=== PATIENT | male | born 1980 | race Caucasian/White ===

== ENCOUNTER 2020-03-04 22:45 | Emergency (ER) | payer MEDICARE, MEDICAID ==
--- NOTE | 2020-03-04 23:34 | ER Document Report ---
ED General - General Chief Complaint: Overdose Stated Complaint: OVERDOSE Time Seen by Provider: 03/04/20 23:00 Primary Care Provider: TAM GUPTA MD [HONORARY] - Follow up as needed Information source: Emergency Med Personnel TRAVEL OUTSIDE OF THE [place] IN LAST 30 DAYS: No - HPI Context: This is a 40-year-old male presents to the emergency department for evaluation of altered mental status after reportedly snorting heroin. The patient is somnolent currently maintain his airway and he has to be roused often to get him awake enough to answer questions. Per EMS report, patient became unresponsive after doing heroin at home. EMS reports that a family member gave the patient an injection of Narcan at home which did help to arouse the patient but he then became unresponsive again. EMS was called and patient was again administered Narcan with a positive response and increased alertness. Patient's vital signs per EMS: Blood pressure 137/88, pulse ox 99%, heart rate 83, respiratory rate 15. Patient denies fever, chills, cough, shortness of breath, history of COVID infection, known exposure to COVID positive persons or persons under in vestigation for COVID. Patient denies any pain or discomfort currently. Patient denies headache, visual changes, chest pain, shortness of breath, nausea vomiting, abdominal pain. HPI and history is limited because the patient becomes very easily somnolent. Patient is currently on a environmental monitoring specialist and a pulse oximeter; patient's O2 sat is 100% on room air at this time. Associated symptoms: Other - Patient denies Exacerbated by: Denies Relieved by: Denies - Related Data Allergies/Adverse Reactions: No Known Allergies Allergy (Verified 09/27/14 18:43) Past Medical History - General Information source: Patient, Emergency Med Personnel - Social History Smoking Status: Current Every Day Smoker Frequency of alcohol use: Occasional Drug Abuse: Heroin Lives with: Family Family History: Reviewed & Not Pertinent Patient has suicidal ideation: No Patient has homicidal ideation: No Psychiatric Medical History: Reports: Other - Substance abuse disorder Past Surgical History: Reports: Hx Orthopedic Surgery - Immunizations Hx Diphtheria, Pertussis, Tetanus Vaccination: No Review of Systems - Review of Systems Notes: Patient is without complaint. Patient is somnolent but arousable and denies any type of pain or discomfort including headache, visual changes, chest pain, shortness of breath, abdominal pain, nausea vomiting, headache, fever or chills Constitutional: No symptoms reported EENT: No symptoms reported Cardiovascular: No symptoms reported Respiratory: No symptoms reported Gastrointestinal: No symptoms reported Genitourinary: No symptoms reported Male Genitourinary: No symptoms reported Musculoskeletal: No symptoms reported Skin: No symptoms reported Hematologic/Lymphatic: No symptoms reported Neurological/Psychological: No symptoms reported -: Yes All other systems reviewed and negative Physical Exam - Vital signs Vitals: Temp 97.7 F 03/04/20 22:45 - Notes Notes: CONSTITUTIONAL EMS vital signs reviewed. Patient is laying in bed sleeping. He is easily awoken and subsequently alert for short periods. Patient appears to be protecting his airway and appears to be in no acute distress] HEAD [Atraumatic, Normocephalic.] EYES [Eyes are normal to inspection, No discharge from eyes, Extraocular muscles intact, Sclera are normal, Conjunctiva are normal.] ENT Patient is managing secretions NECK [Normal ROM, No jugular venous distention, No meningeal signs, no carotid bruit.] RESPIRATORY CHEST [Chest is nontender, Breath sounds normal, No respiratory distress. No stridor.] CARDIOVASCULAR [RRR, No murmurs, Normal S1 S2, No rub, No gallop.] ABDOMEN [Abdomen is nontender, No pulsatile masses, No other masses, Bowel sounds normal, No distension, No peritoneal signs, No hernias.] BACK [There is no CVA Tenderness, There is no tenderness to palpation, Normal inspection.] UPPER EXTREMITY [Inspection normal, No cyanosis, No clubbing, No edema, 2+ radial pulses.] LOWER EXTREMITY [Inspection normal, No cyanosis, No clubbing, No edema, No calf tenderness, 2+ femoral pulses.] NEURO [No focal motor deficits, No focal sensory deficits, Speech normal.] SKIN [Skin is warm, Skin is dry, Skin is normal color.] LYMPHATIC [No adenopathy in neck.] PSYCHIATRIC [Depressed affect. ] Course - Re-evaluation Re-evalutation: 03/05/20 05:35 Results of ED MSE discussed with patient. All questions were answered prior to discharge. Patient refuses to provide urine sample for urinalysis and urine drug screen. Emergency signs and symptoms, reasons to return to the emergency department discussed with patient. - Vital Signs Vital signs: Temp Pulse Resp BP Pulse Ox 97.7 F 12 90/69 L 100 03/04/20 22:52 03/05/20 05:15 03/05/20 05:15 03/05/20 05:15 - Laboratory Result Diagrams: 03/04/20 23:10 03/04/20 23:10 Laboratory results interpreted by me: 03/04/20 03/04/20 23:10 23:10 RBC 4.08 L Hgb 12.3 L Hct 34.9 L RDW 14.1 H BUN 21 H - EKG Interpretation by Me Additional EKG results interpreted by me: 03/05/20 05:39 EKG obtained on 03/05/2020 at 00 11 hours was interpreted by this MD. Findings: Normal sinus rhythm, rate 73, normal axis, NC intervals are within normal limits, P waves proceed QRS complexes, QRS complexes appear narrow, QTC is 437, there are no obvious patterns of ST segment elevation or depression present to suggest acute myocardial ischemia or infarction. When compared to EKG from 11/03/2012 there is no significant change in morphology. Impression: Normal sinus rhythm with nonspecific ST segments. Discharge - Discharge Clinical Impression: Accidental drug overdose Qualifiers: Encounter type: initial encounter Qualified Code(s): T50.901A - Poisoning by unspecified drugs, medicaments and biological substances, accidental (unintentional), initial encounter Condition: Stable Disposition: HOME, SELF-CARE Additional Instructions: Return to the Emergency Department without delay if any worse. HOME CARE INSTRUCTIONS & INFORMATION: Thank you for choosing us for your medical needs. We hope you're satisfied with the care you received. After you leave, you must properly care for your problem and, at the same time, observe its progress. Any condition can change. Some illnesses can change rapidly over hours or days. If your condition worsens, return to the Emergency Department or see your physician promptly. ABOUT YOUR X-RAYS AND EKG'S: If you had an EKG or X-rays taken, they have been read by the Emergency Physician. The X-rays and EKG's will also be read by a Radiologist or Banquet Chef within 24 hours. If discrepancies are noted, you will be notified by telephone. Please be certain the ED has a correct telephone number & address where you can be reached. Also, realize that some fractures or abnormalities do not show up on initial X-rays. If your symptoms continue, see your physician. ABOUT YOUR LABORATORY TEST: If you had laboratory tests, the results have been reviewed by the Emergency Physician. Some test results (for example cultures) may not be available for several days. You will be contacted if any test result shows you need additional treatment. Please be certain the ED has a correct telephone number and address where you can be reached. ABOUT YOUR MEDICATIONS: You will receive instructions on how to take your medicine on the prescription label you receive. Additional information may be provided by the Pharmacy. If you have questions afterwards, call the ED for clarification or further instructions. Some prescribed medications may cause drowsiness. Do not perform tasks such as driving a car or operating machinery without consulting your Pharmacist. If you feel you need a refill of pain medication, your condition will need re-evaluation. Please do not call for a refill of any medication. ABOUT YOUR SIGNATURE: Signature of this document acknowledges to followin. Understanding that you received emergency treatment and that you may be released before al medical problems are known or treated. Please be certain the ED has a correct phone number & address where you can be reached. 2. Acknowledgement that you will arrange for follow-up care as recommended. 3. Authorization for the Emergency Physician to provide information to your follow-up Physician in order to maximize your care. AT ANY TIME, IF YOUR SYMPTOMS CHANGE SIGNIFICANTLY OR WORSEN OR YOU DEVELOP NEW SYMPTOMS, RETURN TO THE EMERGENCY DEPARTMENT IMMEDIATELY FOR RE-EVALUATION. OUR GOAL IS TO PROVIDE EXCELLENT MEDICAL CARE! WE HOPE THAT WE HAVE MET YOUR EXPECTATIONS DURING YOUR EMERGENCY DEPARTMENT VISIT AND THAT YOU FEEL YOU HAVE RECEIVED EXCELLENT CARE! Referrals: TAM GUPTA MD [HONORARY] - Follow up as needed
[2020-03-04] MEDS ORDERED: NORMAL SALINE 1000 ML 1,000 ML IV ONE (23:44)
[2020-03-05 03:07] LABS: ABSOLUTE EOSINOPHILS # (AUTO) 0.3 10^3/uL (0.0-0.6); ABSOLUTE MONOCYTES (AUTO) 0.4 10^3/uL (0.1-1.4); HEMOGLOBIN 12.3 g/dL (13.5-17.0); TOTAL CELLS COUNTED % (AUTO) 100 %
[2020-03-05 03:12] LABS: ABSOLUTE LYMPHOCYTES (AUTO) 2.6 10^3/uL (0.5-4.7); ABSOLUTE NEUT (AUTO) 3.4 10^3/uL (1.7-8.2); BASOPHILS % (AUTO) 0.6 % (0-2); EOSINOPHILS % (AUTO) 4.3 % (0-6); HEMATOCRIT 34.9 % (37.9-51.0); LYMPHOCYTES % (AUTO) 38.5 % (13-45); MEAN CORPUSCULAR HEMOGLOBIN 30.3 pg (27.0-33.4); MEAN CORPUSCULAR HGB CONC 35.4 g/dL (32.0-36.0); MEAN CORPUSCULAR VOLUME 86 fl (80-97); MONOCYTES % (AUTO) 6.6 % (3-13); PLATELET COUNT 319 10^3/uL (150-450); RED BLOOD COUNT 4.08 10^6/uL (4.35-5.55); RED CELL DISTRIBUTION WIDTH 14.1 % (11.5-14.0); WHITE BLOOD COUNT 6.8 10^3/uL (4.0-10.5)
[2020-03-05 03:13] LABS: ALBUMIN 4.3 g/dL (3.5-5.0); ALKALINE PHOSPHATASE 99 U/L (38-126); ANION GAP 8 (5-19); ASPARTATE AMINO TRANSFERASE 22 U/L (17-59); BILIRUBIN,DIRECT 0.3 mg/dL (0.0-0.4); BILIRUBIN,TOTAL 0.4 mg/dL (0.2-1.3); BLOOD UREA NITROGEN 21 mg/dL (7-20); CARBON DIOXIDE 30 mmol/L (22-30); CHLORIDE 101 mmol/L (98-107); GLUCOSE 92 mg/dL (75-110); POTASSIUM 3.8 mmol/L (3.6-5.0); TOTAL PROTEIN 7.4 g/dL (6.3-8.2)
[2020-03-05 03:25] LABS: ALCOHOL < 10 mg/dL (NONE DETECTED)
[2020-03-05 06:14] VITALS: BP 99/77
--- NOTE | 2020-03-08 12:26 | EKG REPORT ---
SEVERITY:- ABNORMAL ECG - SINUS RHYTHM PROBABLE LEFT ATRIAL ABNORMALITY NONSPECIFIC INTRAVENTRICULAR CONDUCTION DELAY LEFT VENTRICULAR HYPERTROPHY : Confirmed by: Sidney Braden MD 08-Mar-2020 12:25:48
== END 2020-03-05 06:16 | disposition home or self-care (01) ==
LOC: ER 22:45
DX: R41.82 Altered mental status, unspecified (principal); T40.1X1A Poisoning by heroin, accidental (unintentional), initial encounter; Y92.009 Unspecified place in unspecified non-institutional (private) residence as the place of occurrence of the external cause; F17.200 Nicotine dependence, unspecified, uncomplicated
CPT/HCPCS: 99284; 96360; 96361; 36415; 80307; 85025; 80053; J7030; 93005; 93010

== ENCOUNTER 2020-03-20 11:51 | Emergency (ER) | payer MEDICARE, MEDICAID ==
[2020-03-20 12:33] VITALS: BP 111/78
== END 2020-03-20 15:14 | disposition left against medical advice (07) ==
LOC: ER 11:51
DX: Z53.21 Procedure and treatment not carried out due to patient leaving prior to being seen by health care provider (principal)